=== PATIENT | female | born 1950 | race Caucasian/White ===

== ENCOUNTER 2019-06-03 20:39 | Observation (INO) ==
[2019-06-04] MEDS ORDERED: Pantoprazole 40 MG VIAL IVP ONE (03:01)
[2019-06-04] MEDS ORDERED: *HR* Dextrose 50 % in Water (Syg) 50 ML SYRINGE IVP PRN (03:02)
[2019-06-04] MEDS ORDERED: Dextrose Gel 15 GM/37.5 ML TUBE PO PRN ×2 (03:02)
[2019-06-04] MEDS ORDERED: D5% in Water 1,000 ML IVC PRN (03:02)
[2019-06-04] MEDS ORDERED: traMADol 50 MG TABLET PO PRN (03:05)
[2019-06-04] MEDS ORDERED: Acetaminophen 325 MG TABLET PO PRN (03:05)
[2019-06-04] MEDS ORDERED: Ondansetron 4 MG/2 ML VIAL IVP PRN (03:05)
[2019-06-04] MEDS ORDERED: Naloxone 0.4 MG/ML INJ IVP PRN (03:05)
[2019-06-04] MEDS ORDERED: Ipratropium/Albuterol Neb 3 ML IH PRN (03:11)
[2019-06-04 04:29] LABS: Basophils # 0.1 K/mcL (0.0-0.2); Basophils % 0.9 %; Eosinophils # 0.3 K/mcL (0.0-0.6); Eosinophils % 3.3 %; Hematocrit 37.2 % (35.3-44.9); Hemoglobin 11.7 g/dL (11.5-15.4); Immature Granulocytes % 0.3 % (0-4); Lymphocytes # 1.5 K/mcL (0.6-4.6); Lymphocytes % 19.7 %; Mean Corpuscular HGB Conc 31.5 g/dL (31.6-35.5); Mean Corpuscular Hemoglobin 25.4 pg (28.0-33.3); Mean Corpuscular Volume 80.9 fL (83.0-100.0); Mean Platelet Volume 10.9 fL (9.4-12.4); Monocytes # 0.7 K/mcL (0.0-1.3); Monocytes % 9.2 %; Platelet Count 199 K/mcL (140-400); Red Cell Distribution Width 18.4 % (11.5-14.5); Segmented Neutrophils % 66.6 %; White Blood Count 7.5 K/mcL (4.3-11.1)
[2019-06-04 04:48] LABS: Chol/HDL Ratio 3.4 (0-4.9)
[2019-06-04 04:51] LABS: Alanine Aminotransferase 11 Units/L (7-52); Albumin 3.6 g/dL (3.5-5.7); Albumin/Globulin Ratio 1.2 (1.1-2.2); Alkaline Phosphatase 94 Units/L (34-104); Aspartate Amino Transferase 14 Units/L (13-39); BUN/Creatinine Ratio 21 (6-26); Bilirubin,Total 0.5 mg/dL (0.3-1.0); Blood Urea Nitrogen 18 mg/dL (8-23); Calcium 8.7 mg/dL (8.6-10.3); Carbon Dioxide 28 mEq/L (23-29); Chloride 107 mEq/L (98-107); Globulin 3.1 g/dL (2.4-3.5); Glucose 94 mg/dL (70-105); Magnesium 2.3 mg/dL (1.6-2.6); Osmolality,Calculated 290 (280-300); Potassium 3.8 mEq/L (3.5-5.1); Sodium 139 mEq/L (136-145); Total Protein 6.7 g/dL (6.4-8.9); Troponin I < 0.03 ng/mL (< 0.04); eGFR For African Americans > 60 (> 60); eGFR For Non-African Americans > 60 (> 60)
[2019-06-04 05:06] LABS: Thyroid Stimulating Hormone 2.369 mcIU/mL (0.340-5.600)
[2019-06-04] MEDS ORDERED: Regadenoson 0.4 MG/5 ML SYRINGE IVP ONE (06:46)
[2019-06-04 10:03] LABS: Estimated Average Glucose 148 mg/dl
[2019-06-04] MEDS: Insulin LISPRO 300 UNITS/3 ML VIAL SQ SCH ×3 (13:30→17:17)
[2019-06-04 17:06] VITALS: BP 147/68
[2019-06-04] MEDS ORDERED: Insulin LISPRO 300 UNITS/3 ML VIAL SQ SCH (21:00)
== END 2019-06-04 18:34 | disposition home or self-care (01) ==
LOC: 3BNU → SUATTDRO 22:36
PROVIDERS: ADMIT Internal Medicine; ATTEND Student in an Organized Health Care Education/Training Program

== ENCOUNTER 2020-03-24 11:18 | Inpatient (IN) ==
[2020-03-24] MEDS ORDERED: Naloxone 0.4 MG/ML INJ IVP PRN (15:30)
[2020-03-24] MEDS ORDERED: Ondansetron ODT 4 MG TAB.RAPDIS SL PRN (15:36)
[2020-03-24] MEDS ORDERED: Dextrose Gel 15 GM/37.5 ML TUBE PO PRN ×2 (15:43)
[2020-03-24] MEDS ORDERED: *HR* Dextrose 50 % in Water (Vial) 50 ML VIAL IVP PRN (15:43)
[2020-03-24] MEDS ORDERED: D5% in Water 1,000 ML IVC PRN (15:43)
[2020-03-24 16:30] LABS: Albumin 3.4 g/dL (3.5-5.7); Albumin/Globulin Ratio 1.1 (1.1-2.2); Bilirubin,Total 1.9 mg/dL (0.3-1.0); Calcium 8.1 mg/dL (8.6-10.3); Magnesium 2.4 mg/dL (1.6-2.6); Phosphorous 3.5 mg/dL (2.7-4.5); Potassium 5.2 mEq/L (3.5-5.1); Total Protein 6.4 g/dL (6.4-8.9)
[2020-03-24] MEDS: Insulin LISPRO 300 UNITS/3 ML VIAL SQ SCH ×2 (16:47→20:17)
[2020-03-24 16:52] LABS: Hepatitis B Surface Antigen Nonreactive (Nonreactive)
[2020-03-24] MEDS ORDERED: 0.9 % Sodium Chloride 1,000 ML IVC ONE (16:59)
[2020-03-24 17:20] LABS: Hepatitis C Virus Antibody Nonreactive (Nonreactive)
[2020-03-24] MEDS ORDERED: 0.9 % Sodium Chloride 1,000 ML ONE (17:20)
[2020-03-24 17:21] LABS: Hepatitis B Core IgM Nonreactive (Nonreactive)
[2020-03-24 17:22] LABS: Hepatitis A Antibody IgM Nonreactive (Nonreactive)
[2020-03-24 17:35] LABS: Mean Corpuscular Volume 82.3 fL (83.0-100.0)
[2020-03-24 17:36] LABS: Basophils % 0.2 %; Eosinophils # 0.1 K/mcL (0.0-0.6); Eosinophils % 1.2 %; Hematocrit 41.4 % (35.3-44.9); Hemoglobin 12.6 g/dL (11.5-15.4); Immature Granulocytes % 0.3 % (0-4); Immature Platelets 11.7 % (1.1-6.1); Lymphocytes % 9.8 %; Mean Corpuscular HGB Conc 30.4 g/dL (31.6-35.5); Monocytes # 0.8 K/mcL (0.0-1.3); Monocytes % 9.4 %; Neutrophils # 6.8 K/mcL (1.6-8.9); Platelet Count 100 K/mcL (140-400); Red Blood Count 5.03 M/mcL (3.82-4.97); Red Cell Distribution Width 16.4 % (11.5-14.5); Segmented Neutrophils % 79.1 %; White Blood Count 8.6 K/mcL (4.3-11.1)
[2020-03-24] MEDS: *HR* Heparin 5,000 UNIT/ML VIAL SQ SCH (17:43)
[2020-03-24 17:45] LABS: Lymphocytes # 0.8 K/mcL (0.6-4.6)
[2020-03-24] MEDS: Gabapentin 300 MG CAPSULE PO SCH (20:13)
[2020-03-24] MEDS: 0.9 % Sodium Chloride 1,000 ML IVC SCH (20:13)
[2020-03-24] MEDS: Budesonide/Formoterol 160/4.5 1 PUFF INH IH SCH (20:27)
[2020-03-25 02:47] LABS: Hematocrit 37.6 % (35.3-44.9); Mean Corpuscular Volume 81.6 fL (83.0-100.0); Red Blood Count 4.61 M/mcL (3.82-4.97); Red Cell Distribution Width 16.6 % (11.5-14.5)
[2020-03-25 02:49] LABS: Hemoglobin 11.4 g/dL (11.5-15.4); Immature Platelets 9.6 % (1.1-6.1); Mean Corpuscular HGB Conc 30.3 g/dL (31.6-35.5); Mean Corpuscular Hemoglobin 24.7 pg (28.0-33.3); Mean Platelet Volume 11.8 fL (9.4-12.4); White Blood Count 6.3 K/mcL (4.3-11.1)
[2020-03-25 03:05] LABS: Albumin 3.1 g/dL (3.5-5.7); Albumin/Globulin Ratio 1.1 (1.1-2.2); Bilirubin,Total 2.3 mg/dL (0.3-1.0); Calcium 7.7 mg/dL (8.6-10.3); Globulin 2.7 g/dL (2.4-3.5); Potassium 4.5 mEq/L (3.5-5.1); Total Protein 5.8 g/dL (6.4-8.9)
[2020-03-25] MEDS: *HR* Heparin 5,000 UNIT/ML VIAL SQ SCH ×2 (05:49→16:36)
[2020-03-25] MEDS: Aspirin 81 MG TAB.CHEW PO SCH (07:39)
[2020-03-25] MEDS: Cholecalciferol (D-3) 1,000 UNIT (25MCG) TABLET PO SCH (07:39)
[2020-03-25] MEDS: Insulin LISPRO 300 UNITS/3 ML VIAL SQ SCH ×4 (08:25→19:54)
[2020-03-25] MEDS: Budesonide/Formoterol 160/4.5 1 PUFF INH IH SCH ×2 (10:45→21:41)
[2020-03-25] MEDS: Tiotropium 18 MCG inhalation IH SCH (10:46)
[2020-03-25] MEDS: 0.9 % Sodium Chloride 1,000 ML IVC SCH (11:59)
[2020-03-25] MEDS: Gabapentin 300 MG CAPSULE PO SCH (21:34)
[2020-03-26] MEDS: *HR* Heparin 5,000 UNIT/ML VIAL SQ SCH ×2 (05:24→16:35)
[2020-03-26 06:55] LABS: Hematocrit 37.8 % (35.3-44.9); Hemoglobin 11.4 g/dL (11.5-15.4); Immature Platelets 7.6 % (1.1-6.1); Mean Corpuscular HGB Conc 30.2 g/dL (31.6-35.5); Mean Corpuscular Hemoglobin 25.4 pg (28.0-33.3); Mean Corpuscular Volume 84.4 fL (83.0-100.0); Mean Platelet Volume 12.3 fL (9.4-12.4); Red Blood Count 4.48 M/mcL (3.82-4.97); Red Cell Distribution Width 16.6 % (11.5-14.5); White Blood Count 5.5 K/mcL (4.3-11.1)
[2020-03-26 07:18] LABS: Alanine Aminotransferase 136 Units/L (7-52); Albumin 3.1 g/dL (3.5-5.7); Albumin/Globulin Ratio 1.1 (1.1-2.2); Alkaline Phosphatase 390 Units/L (34-104); Aspartate Amino Transferase 68 Units/L (13-39); BUN/Creatinine Ratio 20 (6-26); Bilirubin,Total 1.9 mg/dL (0.3-1.0); Blood Urea Nitrogen 19 mg/dL (8-23); Calcium 7.8 mg/dL (8.6-10.3); Carbon Dioxide 24 mEq/L (23-29); Chloride 108 mEq/L (98-107); Globulin 2.9 g/dL (2.4-3.5); Glucose 124 mg/dL (70-105); Osmolality,Calculated 290 (280-300); Potassium 4.7 mEq/L (3.5-5.1); Sodium 138 mEq/L (136-145); eGFR For African Americans > 60 (> 60); eGFR For Non-African Americans 57 (> 60)
[2020-03-26] MEDS ORDERED: Furosemide 20 MG/2 ML VIAL IVP ONE (08:00)
[2020-03-26] MEDS: Insulin LISPRO 300 UNITS/3 ML VIAL SQ SCH ×4 (08:06→20:11)
[2020-03-26] MEDS: hydroCHLOROthiazide 25 MG TABLET PO SCH (08:13)
[2020-03-26] MEDS: Aspirin 81 MG TAB.CHEW PO SCH (08:13)
[2020-03-26] MEDS: Cholecalciferol (D-3) 1,000 UNIT (25MCG) TABLET PO SCH (08:13)
[2020-03-26] MEDS: Furosemide 40 MG TABLET PO SCH (08:14)
[2020-03-26] MEDS: amLODIPine 5 MG TABLET PO SCH (08:14)
[2020-03-26] MEDS: Budesonide/Formoterol 160/4.5 1 PUFF INH IH SCH ×2 (10:33→19:57)
[2020-03-26] MEDS: Tiotropium 18 MCG inhalation IH SCH (10:33)
[2020-03-26] MEDS ORDERED: Aminoglycoside Consult 1 EACH MC ONE (12:14)
[2020-03-26] MEDS ORDERED: cefTRIAXone 1,000 MG in Water for inj. (sterile) 10 ML IVP SCH (14:00)
[2020-03-26] MEDS ORDERED: Azithromycin 500 MG in 0.9 % Sodium Chloride 250 ML IVPB SCH (14:00)
[2020-03-26] MEDS: Ipratropium/Albuterol Neb 3 ML IH SCH ×2 (19:57→23:09)
[2020-03-26] MEDS: Gabapentin 300 MG CAPSULE PO SCH (20:04)
[2020-03-27 02:04] LABS: Hemoglobin 12.1 g/dL (11.5-15.4)
[2020-03-27 02:06] LABS: Hematocrit 40.1 % (35.3-44.9); Immature Platelets 11.5 % (1.1-6.1); Mean Corpuscular HGB Conc 30.2 g/dL (31.6-35.5); Mean Corpuscular Hemoglobin 24.7 pg (28.0-33.3); Mean Corpuscular Volume 81.8 fL (83.0-100.0); Mean Platelet Volume 13.1 fL (9.4-12.4); Red Blood Count 4.9 M/mcL (3.82-4.97); Red Cell Distribution Width 16.6 % (11.5-14.5); White Blood Count 5.8 K/mcL (4.3-11.1)
[2020-03-27 02:23] LABS: Alanine Aminotransferase 133 Units/L (7-52); Albumin 3.3 g/dL (3.5-5.7); Albumin/Globulin Ratio 1.1 (1.1-2.2); Alkaline Phosphatase 434 Units/L (34-104); Aspartate Amino Transferase 74 Units/L (13-39); BUN/Creatinine Ratio 21 (6-26); Bilirubin,Total 1.5 mg/dL (0.3-1.0); Blood Urea Nitrogen 18 mg/dL (8-23); Calcium 8.3 mg/dL (8.6-10.3); Carbon Dioxide 25 mEq/L (23-29); Chloride 103 mEq/L (98-107); Globulin 3.1 g/dL (2.4-3.5); Glucose 94 mg/dL (70-105); Osmolality,Calculated 280 (280-300); Potassium 4.4 mEq/L (3.5-5.1); Sodium 134 mEq/L (136-145); Total Protein 6.4 g/dL (6.4-8.9); eGFR For African Americans > 60 (> 60); eGFR For Non-African Americans > 60 (> 60)
[2020-03-27] MEDS: Ipratropium/Albuterol Neb 3 ML IH SCH ×6 (04:26→23:59)
[2020-03-27] MEDS: *HR* Heparin 5,000 UNIT/ML VIAL SQ SCH ×2 (04:55→17:10)
[2020-03-27] MEDS: Budesonide/Formoterol 160/4.5 1 PUFF INH IH SCH ×2 (07:42→20:52)
[2020-03-27] MEDS: Tiotropium 18 MCG inhalation IH SCH (07:43)
[2020-03-27] MEDS: Insulin LISPRO 300 UNITS/3 ML VIAL SQ SCH ×4 (08:54→20:41)
[2020-03-27] MEDS: Aspirin 81 MG TAB.CHEW PO SCH (08:59)
[2020-03-27] MEDS: hydroCHLOROthiazide 25 MG TABLET PO SCH (08:59)
[2020-03-27] MEDS: amLODIPine 5 MG TABLET PO SCH (08:59)
[2020-03-27] MEDS: Furosemide 40 MG TABLET PO SCH (08:59)
[2020-03-27] MEDS: Cholecalciferol (D-3) 1,000 UNIT (25MCG) TABLET PO SCH (08:59)
[2020-03-27 09:32] LABS: INR 0.9; Prothrombin Time 10.6 Seconds (9.4-12.1)
[2020-03-27 09:39] LABS: Gamma Glutamyl Transpeptidase 90 Units/L (7-64); Lactate Dehydrogenase 176 Units/L (140-271)
[2020-03-27] MEDS ORDERED: methylPREDNISolone 125 MG/2 ML VIAL IVP ONE (10:52)
[2020-03-27] MEDS: Cefdinir 300 MG CAPSULE PO SCH ×2 (12:05→20:41)
[2020-03-27] MEDS: Doxycycline 100 MG CAPSULE PO SCH ×2 (12:05→20:41)
[2020-03-27] MEDS: Gabapentin 300 MG CAPSULE PO SCH (20:41)
[2020-03-28 02:46] LABS: Hematocrit 37.5 % (35.3-44.9); Hemoglobin 11.6 g/dL (11.5-15.4); Mean Corpuscular HGB Conc 30.9 g/dL (31.6-35.5); Mean Corpuscular Hemoglobin 25.1 pg (28.0-33.3); Mean Corpuscular Volume 81.2 fL (83.0-100.0); Mean Platelet Volume 12.5 fL (9.4-12.4); Platelet Count 126 K/mcL (140-400); Red Blood Count 4.62 M/mcL (3.82-4.97); Red Cell Distribution Width 16.4 % (11.5-14.5); White Blood Count 5.5 K/mcL (4.3-11.1)
[2020-03-28 03:09] LABS: BUN/Creatinine Ratio 36 (6-26); Blood Urea Nitrogen 35 mg/dL (8-23); Calcium 8.6 mg/dL (8.6-10.3); Carbon Dioxide 25 mEq/L (23-29); Chloride 101 mEq/L (98-107); Glucose 286 mg/dL (70-105); Osmolality,Calculated 296 (280-300); Potassium 4.2 mEq/L (3.5-5.1); Sodium 134 mEq/L (136-145); eGFR For African Americans > 60 (> 60); eGFR For Non-African Americans 57 (> 60)
[2020-03-28] MEDS: Ipratropium/Albuterol Neb 3 ML IH SCH ×5 (04:40→19:35)
[2020-03-28] MEDS: *HR* Heparin 5,000 UNIT/ML VIAL SQ SCH ×2 (05:21→18:15)
[2020-03-28] MEDS: Budesonide/Formoterol 160/4.5 1 PUFF INH IH SCH ×2 (07:41→19:35)
[2020-03-28] MEDS: Cefdinir 300 MG CAPSULE PO SCH ×2 (08:42→20:46)
[2020-03-28] MEDS: predniSONE 20 MG TABLET PO SCH (08:43)
[2020-03-28] MEDS: hydroCHLOROthiazide 25 MG TABLET PO SCH (08:43)
[2020-03-28] MEDS: Furosemide 40 MG TABLET PO SCH (08:43)
[2020-03-28] MEDS: Doxycycline 100 MG CAPSULE PO SCH ×2 (08:43→20:46)
[2020-03-28] MEDS: Cholecalciferol (D-3) 1,000 UNIT (25MCG) TABLET PO SCH (08:43)
[2020-03-28] MEDS: Aspirin 81 MG TAB.CHEW PO SCH (08:43)
[2020-03-28] MEDS: amLODIPine 5 MG TABLET PO SCH (08:43)
[2020-03-28] MEDS: Insulin LISPRO 300 UNITS/3 ML VIAL SQ SCH ×4 (08:44→20:47)
[2020-03-28] MEDS ORDERED: Famotidine 20 MG/2 ML VIAL IVP ONE (14:46)
[2020-03-28] MEDS ORDERED: Dexamethasone 4 MG/ML VIAL ONE (16:02)
[2020-03-28] MEDS ORDERED: Ondansetron 4 MG/2 ML VIAL ONE (16:02)
[2020-03-28] MEDS ORDERED: Lidocaine -MPF 4% 5 ML AMPUL ONE (16:02)
[2020-03-28] MEDS ORDERED: Lidocaine -MPF 2% 2 ML VIAL ONE (16:02)
[2020-03-28] MEDS ORDERED: *HR* FentaNYL (PF) 100 MCG/2 ML VIAL ONE (16:02)
[2020-03-28] MEDS ORDERED: *HR* Rocuronium Bromide 50 MG/5 ML VIAL ONE (16:02)
[2020-03-28] MEDS ORDERED: *HR* Succinylcholine 200 MG/10 ML VIAL IVP ONE (16:02)
[2020-03-28] MEDS ORDERED: *HR* Propofol 200 MG/20 ML VIAL IVP ONE ×2 (16:02→16:46)
[2020-03-28] MEDS: *HR* EPINEPHrine 1 MG/10 ML SYRINGE INTRATRACH PRN ×2 (16:50→16:54)
[2020-03-28] MEDS ORDERED: Albuterol 2.5 MG/3 ML NEBULIZER ONE (17:02)
[2020-03-28] MEDS ORDERED: Albuterol 2.5 MG/3 ML NEBULIZER IH ONE (17:03)
[2020-03-28 18:54] LABS: Appearance of Body Fluid Hazy (Clear)
[2020-03-28 18:55] LABS: Volume of Body Fluid 14 mL
[2020-03-28] MEDS: Gabapentin 300 MG CAPSULE PO SCH (20:46)
[2020-03-29] MEDS: Ipratropium/Albuterol Neb 3 ML IH SCH ×4 (00:06→11:13)
[2020-03-29 02:04] LABS: Basophils % 0.1 %; Hematocrit 36.5 % (35.3-44.9); Hemoglobin 11.3 g/dL (11.5-15.4); Immature Granulocytes % 0.8 % (0-4); Lymphocytes # 0.4 K/mcL (0.6-4.6); Lymphocytes % 3.5 %; Mean Corpuscular Hemoglobin 25.4 pg (28.0-33.3); Mean Platelet Volume 12.4 fL (9.4-12.4); Monocytes # 0.5 K/mcL (0.0-1.3); Monocytes % 4.2 %; Platelet Count 150 K/mcL (140-400); Red Blood Count 4.45 M/mcL (3.82-4.97); Segmented Neutrophils % 91.4 %
[2020-03-29 02:05] LABS: Neutrophils # 9.9 K/mcL (1.6-8.9); White Blood Count 10.8 K/mcL (4.3-11.1)
[2020-03-29 02:20] LABS: BUN/Creatinine Ratio 34 (6-26); Blood Urea Nitrogen 30 mg/dL (8-23); Calcium 8.7 mg/dL (8.6-10.3); Carbon Dioxide 26 mEq/L (23-29); Chloride 98 mEq/L (98-107); Glucose 270 mg/dL (70-105); Osmolality,Calculated 294 (280-300); Potassium 4.6 mEq/L (3.5-5.1); Sodium 134 mEq/L (136-145); eGFR For African Americans > 60 (> 60); eGFR For Non-African Americans > 60 (> 60)
[2020-03-29 02:21] LABS: Albumin 3.2 g/dL (3.5-5.7); Bilirubin,Direct 0.2 mg/dL (0.0-0.2); Bilirubin,Indirect 0.4 mg/dL (0.0-1.0); Bilirubin,Total 0.6 mg/dL (0.3-1.0); Globulin 3.2 g/dL (2.4-3.5); Total Protein 6.4 g/dL (6.4-8.9)
[2020-03-29] MEDS: *HR* Heparin 5,000 UNIT/ML VIAL SQ SCH (05:36)
[2020-03-29] MEDS: Budesonide/Formoterol 160/4.5 1 PUFF INH IH SCH (07:39)
[2020-03-29 08:22] VITALS: BP 119/71
[2020-03-29] MEDS: Furosemide 40 MG TABLET PO SCH (08:36)
[2020-03-29] MEDS: Cholecalciferol (D-3) 1,000 UNIT (25MCG) TABLET PO SCH (08:37)
[2020-03-29] MEDS: Doxycycline 100 MG CAPSULE PO SCH (08:37)
[2020-03-29] MEDS: amLODIPine 5 MG TABLET PO SCH (08:37)
[2020-03-29] MEDS: predniSONE 20 MG TABLET PO SCH (08:37)
[2020-03-29] MEDS: hydroCHLOROthiazide 25 MG TABLET PO SCH (08:37)
[2020-03-29] MEDS: Cefdinir 300 MG CAPSULE PO SCH (08:37)
[2020-03-29] MEDS: Aspirin 81 MG TAB.CHEW PO SCH (08:37)
[2020-03-29] MEDS: Insulin LISPRO 300 UNITS/3 ML VIAL SQ SCH (08:37)
[2020-03-29 08:58] LABS: AFP Tumor Marker Non-Pregnant 3 ng/mL (0-9)
[2020-03-29 08:59] LABS: F-Actin (sm muscle) Ab IgG 30 Units (0-19); Serine Protease-3 Antibody 6 AU/mL (0-19)
[2020-03-29 09:06] LABS: ANA IgG by ELISA DETECTED (None Detected)
[2020-03-29 19:45] LABS: ANA HEp-2 IgG IFA DETECTED (<1:80); Anti Nuclear Ab Pattern NUCLEOLAR
[2020-03-30 08:17] LABS: Smooth Muscle Ab Titer IgG <1:20 (<1:20)
== END 2020-03-29 12:15 | disposition home or self-care (01) | DRG 682 ==
LOC: 2ANU → SUATTDRO 13:51
PROVIDERS: ADMIT Family Medicine; ATTEND Internal Medicine

== ENCOUNTER 2020-09-21 13:51 | Inpatient (IN) ==
[2020-09-21] MEDS ORDERED: Perflutren Lipid Microsphere 1.3 ML in 0.9 % Sodium Chloride 8.7 ML IVP PRN (16:50)
[2020-09-21] MEDS ORDERED: Aspirin Enteric Coated 325 MG Tablet PO ONE (16:52)
[2020-09-21] MEDS ORDERED: Ondansetron ODT 4 MG TAB.RAPDIS SL PRN (16:54)
[2020-09-21] MEDS ORDERED: Naloxone 0.4 MG/ML INJ IVP PRN (16:54)
[2020-09-21 17:22] LABS: Basophils % 0.4 %; Eosinophils # 0.1 K/mcL (0.0-0.6); Eosinophils % 0.6 %; Hematocrit 36.2 % (35.3-44.9); Hemoglobin 11.2 g/dL (11.5-15.4); Immature Granulocytes % 0.6 % (0-4); Lymphocytes # 0.4 K/mcL (0.6-4.6); Lymphocytes % 4.5 %; Mean Corpuscular HGB Conc 30.9 g/dL (31.6-35.5); Mean Corpuscular Hemoglobin 27.7 pg (28.0-33.3); Mean Corpuscular Volume 89.4 fL (83.0-100.0); Mean Platelet Volume 10.7 fL (9.4-12.4); Monocytes % 10.6 %; Neutrophils # 7.6 K/mcL (1.6-8.9); Platelet Count 196 K/mcL (140-400); Red Blood Count 4.05 M/mcL (3.82-4.97); Red Cell Distribution Width 19.5 % (11.5-14.5); Segmented Neutrophils % 83.3 %; White Blood Count 9.1 K/mcL (4.3-11.1)
[2020-09-21 17:42] LABS: BUN/Creatinine Ratio 27 (6-26); Blood Urea Nitrogen 20 mg/dL (8-23); Calcium 8.8 mg/dL (8.6-10.3); Carbon Dioxide 24 mEq/L (23-29); Chloride 101 mEq/L (98-107); Glucose 93 mg/dL (70-105); Osmolality,Calculated 280 (280-300); Potassium 4.5 mEq/L (3.5-5.1); Sodium 134 mEq/L (136-145); eGFR For African Americans > 60 (> 60); eGFR For Non-African Americans > 60 (> 60)
[2020-09-21] MEDS ORDERED: Isovue-370 500 ML BOTTLE IVP ONE (18:41)
[2020-09-21] MEDS ORDERED: *HR* Dextrose 50 % in Water (Vial) 50 ML VIAL IVP PRN (18:45)
[2020-09-21] MEDS ORDERED: D5% in Water 1,000 ML IVC PRN (18:45)
[2020-09-21] MEDS ORDERED: Dextrose Gel 15 GM/37.5 ML TUBE PO PRN ×2 (18:45)
[2020-09-21 21:06] LABS: Bacteria,Urine Few per hpf (None-Few); Bilirubin,Urine Negative (Negative); Blood,Urine Negative (Negative); Clarity,Urine Clear (Clear); Color,Urine Light-Orange (Yellow); Glucose,Urine (UA) Normal (Normal); Ketones,Urine Trace mg/dL (Negative); Leukocyte Esterase,Urine Negative (Negative); Mucus,Urine Few per lpf (None-Few); Nitrite,Urine Negative (Negative); Protein,Urine 30 mg/dL (Neg-Trace); RBC,Urine 0-3 per hpf (0-3); Specific Gravity,Urine > 1.030 (1.010-1.025); Squamous Epithelial Cell,Urine Moderate per hpf (None-Few); WBC,Urine 0-3 per hpf (0-3)
[2020-09-22] MEDS: Insulin LISPRO 300 UNITS/3 ML VIAL SUBQ SCH ×4 (00:47→19:08)
[2020-09-22] MEDS: Ipratropium/Albuterol Neb 3 ML IH SCH ×7 (03:27→23:39)
[2020-09-22] MEDS: Budesonide/Formoterol 160/4.5 1 PUFF INH IH SCH ×3 (03:27→20:00)
[2020-09-22] MEDS: *HR* Heparin 5,000 UNIT/ML VIAL SQ SCH ×2 (06:18→16:27)
[2020-09-22] MEDS ORDERED: Aspirin Enteric Coated 81 MG Tablet PO SCH (09:00)
[2020-09-22 09:04] LABS: Hematocrit 37.1 % (35.3-44.9); Hemoglobin 11.5 g/dL (11.5-15.4); Mean Corpuscular Hemoglobin 27.8 pg (28.0-33.3); Mean Corpuscular Volume 89.8 fL (83.0-100.0); Mean Platelet Volume 11.1 fL (9.4-12.4); Platelet Count 175 K/mcL (140-400); Red Blood Count 4.13 M/mcL (3.82-4.97); Red Cell Distribution Width 19.4 % (11.5-14.5); White Blood Count 6.1 K/mcL (4.3-11.1)
[2020-09-22 09:06] LABS: INR 1.2; Prothrombin Time 14.2 Seconds (9.4-12.1)
[2020-09-22 09:19] LABS: Alanine Aminotransferase 6 Units/L (7-52); Albumin 3.3 g/dL (3.5-5.7); Alkaline Phosphatase 76 Units/L (34-104); Aspartate Amino Transferase 11 Units/L (13-39); BUN/Creatinine Ratio 27 (6-26); Bilirubin,Total 0.6 mg/dL (0.3-1.0); Blood Urea Nitrogen 17 mg/dL (8-23); Calcium 8.7 mg/dL (8.6-10.3); Carbon Dioxide 23 mEq/L (23-29); Chloride 103 mEq/L (98-107); Chol/HDL Ratio 4.3 (0-4.9); Cholesterol 120 mg/dL (< 200); Globulin 3.3 g/dL (2.4-3.5); Glucose 82 mg/dL (70-105); HDL Cholesterol 28 mg/dL (40-59); LDL Cholesterol,Calculated 72 mg/dL (< 100); Osmolality,Calculated 281 (280-300); Potassium 3.8 mEq/L (3.5-5.1); Sodium 135 mEq/L (136-145); Total Protein 6.6 g/dL (6.4-8.9); Triglycerides 100 mg/dL (< 150); Troponin I 0.03 ng/mL (< 0.04); eGFR For African Americans > 60 (> 60); eGFR For Non-African Americans > 60 (> 60)
[2020-09-22] MEDS: Aspirin 81 MG TAB.CHEW PO SCH (11:25)
[2020-09-22] MEDS: Nicotine 7 MG PATCH.TD24 TD SCH (16:27)
[2020-09-22 22:34] LABS: Estimated Average Glucose 134 mg/dl; Hemoglobin A1C 6.3 %
[2020-09-23] MEDS: Insulin LISPRO 300 UNITS/3 ML VIAL SUBQ SCH ×4 (00:03→18:26)
[2020-09-23 03:59] LABS: Hematocrit 35.3 % (35.3-44.9); Mean Corpuscular HGB Conc 31.2 g/dL (31.6-35.5); Mean Corpuscular Hemoglobin 28.2 pg (28.0-33.3); Mean Corpuscular Volume 90.5 fL (83.0-100.0); Mean Platelet Volume 10.7 fL (9.4-12.4); Platelet Count 185 K/mcL (140-400); White Blood Count 9.2 K/mcL (4.3-11.1)
[2020-09-23] MEDS: Ipratropium/Albuterol Neb 3 ML IH SCH ×6 (04:04→23:52)
[2020-09-23 04:21] LABS: BUN/Creatinine Ratio 28 (6-26); Blood Urea Nitrogen 18 mg/dL (8-23); Calcium 8.7 mg/dL (8.6-10.3); Carbon Dioxide 26 mEq/L (23-29); Chloride 104 mEq/L (98-107); Glucose 113 mg/dL (70-105); Osmolality,Calculated 287 (280-300); Potassium 4.3 mEq/L (3.5-5.1); Sodium 137 mEq/L (136-145); eGFR For African Americans > 60 (> 60); eGFR For Non-African Americans > 60 (> 60)
[2020-09-23] MEDS: *HR* Heparin 5,000 UNIT/ML VIAL SQ SCH ×2 (05:15→16:12)
[2020-09-23] MEDS: Budesonide/Formoterol 160/4.5 1 PUFF INH IH SCH ×2 (08:07→20:06)
[2020-09-23] MEDS: Nicotine 7 MG PATCH.TD24 TD SCH (08:36)
[2020-09-23] MEDS: Aspirin 81 MG TAB.CHEW PO SCH (08:36)
[2020-09-23] MEDS: Cholecalciferol (D-3) 1,000 UNIT (25MCG) TABLET PO SCH (08:36)
[2020-09-23] MEDS: predniSONE 20 MG TABLET PO SCH (09:42)
[2020-09-23] MEDS ORDERED: Azithromycin 500 MG in 0.9 % Sodium Chloride 250 ML IVPB SCH (16:00)
[2020-09-23] MEDS: Cefepime HCl 2,000 MG in Water for inj. (sterile) 20 ML IVP SCH ×2 (16:12→23:15)
[2020-09-23 17:36] LABS: Adenovirus Not Detected (Not Detect); Bordetella Pertussis Not Detected (Not Detect); Chlamydophila pneumoniae Not Detected (Not Detect); Coronavirus 229E Not Detected (Not Detect); Coronavirus HKU1 Not Detected (Not Detect); Coronavirus NL63 Not Detected (Not Detect); Coronavirus OC43 Not Detected (Not Detect); Human Metapneumovirus Not Detected (Not Detect); Human Rhinovirus/Enterovirus Not Detected (Not Detect); Influenza A Subtype 2009 H1 Not Detected (Not Detect); Influenza B Not Detected (Not Detect); Mycoplasma pneumoniae Not Detected (Not Detect); Parainfluenza Virus 1 Not Detected (Not Detect); Parainfluenza Virus 2 Not Detected (Not Detect); Parainfluenza Virus 3 Not Detected (Not Detect); Parainfluenza Virus 4 Not Detected (Not Detect); Respiratory Syncytial Virus Not Detected (Not Detect); SARS-CoV-2 Not Detected (Not Detect)
[2020-09-23] MEDS: Gabapentin 300 MG CAPSULE PO SCH (19:47)
[2020-09-24] MEDS: Insulin LISPRO 300 UNITS/3 ML VIAL SUBQ SCH ×4 (00:11→17:31)
[2020-09-24 02:02] LABS: Hemoglobin 10.7 g/dL (11.5-15.4); Mean Corpuscular HGB Conc 31.5 g/dL (31.6-35.5); Mean Corpuscular Hemoglobin 28.5 pg (28.0-33.3); Mean Corpuscular Volume 90.7 fL (83.0-100.0); Platelet Count 195 K/mcL (140-400); Red Blood Count 3.75 M/mcL (3.82-4.97); Red Cell Distribution Width 18.8 % (11.5-14.5); White Blood Count 7.7 K/mcL (4.3-11.1)
[2020-09-24 02:20] LABS: BUN/Creatinine Ratio 32 (6-26); Blood Urea Nitrogen 24 mg/dL (8-23); Calcium 8.9 mg/dL (8.6-10.3); Carbon Dioxide 23 mEq/L (23-29); Chloride 104 mEq/L (98-107); Glucose 186 mg/dL (70-105); Osmolality,Calculated 289 (280-300); Potassium 4.3 mEq/L (3.5-5.1); Sodium 135 mEq/L (136-145); eGFR For African Americans > 60 (> 60); eGFR For Non-African Americans > 60 (> 60)
[2020-09-24] MEDS: Ipratropium/Albuterol Neb 3 ML IH SCH ×6 (03:57→23:13)
[2020-09-24] MEDS: *HR* Heparin 5,000 UNIT/ML VIAL SQ SCH ×2 (05:35→16:48)
[2020-09-24] MEDS: Budesonide/Formoterol 160/4.5 1 PUFF INH IH SCH ×2 (08:14→20:11)
[2020-09-24] MEDS: Furosemide 40 MG TABLET PO SCH (08:32)
[2020-09-24] MEDS: Cefepime HCl 2,000 MG in Water for inj. (sterile) 20 ML IVP SCH ×3 (08:32→23:43)
[2020-09-24] MEDS: Nicotine 7 MG PATCH.TD24 TD SCH (08:32)
[2020-09-24] MEDS: predniSONE 20 MG TABLET PO SCH (08:33)
[2020-09-24] MEDS: hydroCHLOROthiazide 25 MG TABLET PO SCH (08:33)
[2020-09-24] MEDS: Aspirin 81 MG TAB.CHEW PO SCH (08:33)
[2020-09-24] MEDS: Cholecalciferol (D-3) 1,000 UNIT (25MCG) TABLET PO SCH (08:33)
[2020-09-24] MEDS: amLODIPine 5 MG TABLET PO SCH (08:33)
[2020-09-24] MEDS ORDERED: Isovue-370 500 ML BOTTLE IVP ONE (14:58)
[2020-09-24] MEDS: Gabapentin 300 MG CAPSULE PO SCH (20:25)
[2020-09-25] MEDS: Insulin LISPRO 300 UNITS/3 ML VIAL SUBQ SCH ×3 (00:25→11:58)
[2020-09-25] MEDS: Ipratropium/Albuterol Neb 3 ML IH SCH ×6 (03:34→23:43)
[2020-09-25] MEDS: *HR* Heparin 5,000 UNIT/ML VIAL SQ SCH (05:23)
[2020-09-25 06:32] LABS: Hematocrit 32.4 % (35.3-44.9); Hemoglobin 10.1 g/dL (11.5-15.4); Mean Corpuscular HGB Conc 31.2 g/dL (31.6-35.5); Mean Corpuscular Hemoglobin 28.1 pg (28.0-33.3); Mean Platelet Volume 10.9 fL (9.4-12.4); Platelet Count 186 K/mcL (140-400); Red Cell Distribution Width 18.9 % (11.5-14.5); White Blood Count 8.1 K/mcL (4.3-11.1)
[2020-09-25 06:48] LABS: BUN/Creatinine Ratio 33 (6-26); Blood Urea Nitrogen 25 mg/dL (8-23); Calcium 9.1 mg/dL (8.6-10.3); Carbon Dioxide 24 mEq/L (23-29); Chloride 105 mEq/L (98-107); Glucose 149 mg/dL (70-105); Osmolality,Calculated 291 (280-300); Potassium 3.9 mEq/L (3.5-5.1); Sodium 137 mEq/L (136-145); eGFR For African Americans > 60 (> 60); eGFR For Non-African Americans > 60 (> 60)
[2020-09-25] MEDS: Budesonide/Formoterol 160/4.5 1 PUFF INH IH SCH ×3 (07:44→22:21)
[2020-09-25] MEDS: Cefepime HCl 2,000 MG in Water for inj. (sterile) 20 ML IVP SCH (09:21)
[2020-09-25] MEDS: hydroCHLOROthiazide 25 MG TABLET PO SCH (09:25)
[2020-09-25] MEDS: Nicotine 7 MG PATCH.TD24 TD SCH (09:25)
[2020-09-25] MEDS: Cholecalciferol (D-3) 1,000 UNIT (25MCG) TABLET PO SCH (09:26)
[2020-09-25] MEDS: predniSONE 20 MG TABLET PO SCH (09:26)
[2020-09-25] MEDS: amLODIPine 5 MG TABLET PO SCH (09:26)
[2020-09-25] MEDS: Furosemide 40 MG TABLET PO SCH (09:26)
[2020-09-25] MEDS: Aspirin 81 MG TAB.CHEW PO SCH (09:26)
[2020-09-25] MEDS ORDERED: *HR* FentaNYL (PF) 100 MCG/2 ML VIAL ONE ×2 (13:44→20:00)
[2020-09-25] MEDS ORDERED: *HR* Propofol 200 MG/20 ML VIAL IVP ONE (13:45)
[2020-09-25] MEDS ORDERED: Ondansetron 4 MG/2 ML VIAL ONE ×2 (13:48→20:08)
[2020-09-25] MEDS ORDERED: *HR* Succinylcholine 200 MG/10 ML VIAL IVP ONE (13:48)
[2020-09-25] MEDS ORDERED: Lidocaine -MPF 2% 2 ML VIAL ONE (13:48)
[2020-09-25] MEDS ORDERED: Heparin 1,000 UNITS/500 mL 500 ML ONE ×2 (13:49→15:33)
[2020-09-25] MEDS ORDERED: EPHEDrine 50 MG/ML VIAL ONE (13:50)
[2020-09-25] MEDS ORDERED: *HR* Heparin 5,000 UNIT/ML VIAL ONE (13:52)
[2020-09-25] MEDS ORDERED: *HR* Phenylephrine 10 MG/ML VIAL ONE (13:55)
[2020-09-25] MEDS ORDERED: *HR* Remifentanil 1 MG VIAL IVP ONE (13:59)
[2020-09-25] MEDS ORDERED: Lidocaine -MPF 4% 5 ML AMPUL ONE (14:03)
[2020-09-25] MEDS ORDERED: Ondansetron 4 MG/2 ML VIAL IVP PRN ×3 (14:51→21:30)
[2020-09-25] MEDS ORDERED: *HR* OxyCODONE Immed Rel 5 MG TABLET PO PRN ×2 (14:51→21:30)
[2020-09-25] MEDS ORDERED: *HR* Labetalol 20 MG/4 ML SYRINGE IVP PRN ×3 (14:51→21:30)
[2020-09-25] MEDS ORDERED: *HR* HYDROmorphone 2 MG TABLET PO PRN ×2 (14:51→21:30)
[2020-09-25] MEDS ORDERED: Ringers Solution, Lactated 1,000 ML IVC SCH ×2 (15:00→21:30)
[2020-09-25] MEDS ORDERED: Protamine Sulfate 50 MG/5 ML VIAL IVP ONE (15:33)
[2020-09-25] MEDS: Clindamycin 900 MG/50 ML 900 MG/50 ML IV.SOLN IVPB ONE ×2 (15:35→15:50)
[2020-09-25] MEDS ORDERED: Clindamycin 900 MG/50 ML 900 MG/50 ML IV.SOLN IVPB ONE (15:49)
[2020-09-25] MEDS ORDERED: *HR* Dextrose 50 % in Water (Vial) 50 ML VIAL IVP PRN (21:30)
[2020-09-25] MEDS ORDERED: D5% in Water 1,000 ML IVC PRN (21:30)
[2020-09-25] MEDS ORDERED: Dextrose Gel 15 GM/37.5 ML TUBE PO PRN ×2 (21:30)
[2020-09-25] MEDS ORDERED: Naloxone 0.4 MG/ML INJ IVP PRN ×2 (21:30)
[2020-09-25] MEDS ORDERED: Perflutren Lipid Microsphere 1.3 ML in 0.9 % Sodium Chloride 8.7 ML IVP PRN (21:30)
[2020-09-25] MEDS ORDERED: Acetaminophen 325 MG TABLET PO PRN (21:30)
[2020-09-25] MEDS ORDERED: *HR* HYDROcodone/Acet 5/325 mg TABLET PO PRN (21:30)
[2020-09-25] MEDS ORDERED: Ondansetron ODT 4 MG TAB.RAPDIS SL PRN (21:30)
[2020-09-25 23:32] LABS: Hematocrit 29.2 % (35.3-44.9); Hemoglobin 9.3 g/dL (11.5-15.4); Mean Corpuscular HGB Conc 31.8 g/dL (31.6-35.5); Mean Corpuscular Hemoglobin 27.8 pg (28.0-33.3); Mean Corpuscular Volume 87.4 fL (83.0-100.0); Mean Platelet Volume 10.6 fL (9.4-12.4); Platelet Count 185 K/mcL (140-400); Red Blood Count 3.34 M/mcL (3.82-4.97); Red Cell Distribution Width 19.2 % (11.5-14.5)
[2020-09-26 00:09] LABS: Lymphocytes # 0.4 K/mcL (0.6-4.6); Monocytes # 0.4 K/mcL (0.0-1.3); Neutrophils # 8.3 K/mcL (1.6-8.9); Platelet Estimate Normal (Normal)
[2020-09-26] MEDS: Insulin LISPRO 300 UNITS/3 ML VIAL SUBQ SCH ×4 (00:14→18:25)
[2020-09-26] MEDS: Cefepime HCl 2,000 MG in Water for inj. (sterile) 20 ML IVP SCH ×3 (00:15→19:56)
[2020-09-26] MEDS: Ipratropium/Albuterol Neb 3 ML IH SCH ×6 (03:48→23:09)
[2020-09-26] MEDS: *HR* Heparin 5,000 UNIT/ML VIAL SQ SCH ×2 (06:21→17:15)
[2020-09-26] MEDS: Budesonide/Formoterol 160/4.5 1 PUFF INH IH SCH ×2 (08:02→20:20)
[2020-09-26] MEDS: Nicotine 7 MG PATCH.TD24 TD SCH (09:09)
[2020-09-26] MEDS: Aspirin 81 MG TAB.CHEW PO SCH (09:09)
[2020-09-26] MEDS: Cholecalciferol (D-3) 1,000 UNIT (25MCG) TABLET PO SCH (09:10)
[2020-09-26] MEDS: hydroCHLOROthiazide 25 MG TABLET PO SCH (09:10)
[2020-09-26] MEDS: predniSONE 20 MG TABLET PO SCH (09:10)
[2020-09-26] MEDS: amLODIPine 5 MG TABLET PO SCH (09:11)
[2020-09-26] MEDS: Furosemide 40 MG TABLET PO SCH (09:11)
[2020-09-26 13:24] LABS: Basophils % 0.1 %; Hematocrit 33.7 % (35.3-44.9); Hemoglobin 10.4 g/dL (11.5-15.4); Immature Granulocytes % 1.1 % (0-4); Lymphocytes # 0.2 K/mcL (0.6-4.6); Lymphocytes % 1.8 %; Mean Corpuscular HGB Conc 30.9 g/dL (31.6-35.5); Mean Corpuscular Hemoglobin 27.6 pg (28.0-33.3); Mean Corpuscular Volume 89.4 fL (83.0-100.0); Mean Platelet Volume 10.9 fL (9.4-12.4); Monocytes # 0.5 K/mcL (0.0-1.3); Monocytes % 4.2 %; Neutrophils # 11.1 K/mcL (1.6-8.9); Platelet Count 216 K/mcL (140-400); Red Blood Count 3.77 M/mcL (3.82-4.97); Red Cell Distribution Width 19.4 % (11.5-14.5); Segmented Neutrophils % 92.8 %
[2020-09-26 13:38] LABS: BUN/Creatinine Ratio 25 (6-26); Blood Urea Nitrogen 21 mg/dL (8-23); Calcium 9.2 mg/dL (8.6-10.3); Carbon Dioxide 30 mEq/L (23-29); Chloride 99 mEq/L (98-107); Glucose 145 mg/dL (70-105); Osmolality,Calculated 286 (280-300); Potassium 4.4 mEq/L (3.5-5.1); Sodium 135 mEq/L (136-145); eGFR For African Americans > 60 (> 60); eGFR For Non-African Americans > 60 (> 60)
[2020-09-26] MEDS ORDERED: Gabapentin 300 MG CAPSULE PO SCH (21:00)
[2020-09-27] MEDS: Insulin LISPRO 300 UNITS/3 ML VIAL SUBQ SCH ×3 (00:25→11:46)
[2020-09-27 03:24] LABS: Basophils % 0.4 %; Eosinophils % 0.1 %; Hematocrit 31.9 % (35.3-44.9); Hemoglobin 10.1 g/dL (11.5-15.4); Immature Granulocytes % 1.8 % (0-4); Lymphocytes # 0.6 K/mcL (0.6-4.6); Lymphocytes % 7.8 %; Mean Corpuscular HGB Conc 31.7 g/dL (31.6-35.5); Mean Corpuscular Hemoglobin 27.8 pg (28.0-33.3); Mean Corpuscular Volume 87.9 fL (83.0-100.0); Mean Platelet Volume 11.1 fL (9.4-12.4); Monocytes # 0.8 K/mcL (0.0-1.3); Monocytes % 10.2 %; Neutrophils # 6.2 K/mcL (1.6-8.9); Platelet Count 190 K/mcL (140-400); Red Blood Count 3.63 M/mcL (3.82-4.97); Red Cell Distribution Width 19.1 % (11.5-14.5); Segmented Neutrophils % 79.7 %; White Blood Count 7.7 K/mcL (4.3-11.1)
[2020-09-27 03:44] LABS: BUN/Creatinine Ratio 26 (6-26); Blood Urea Nitrogen 21 mg/dL (8-23); Carbon Dioxide 33 mEq/L (23-29); Chloride 101 mEq/L (98-107); Glucose 114 mg/dL (70-105); Osmolality,Calculated 292 (280-300); Potassium 4.1 mEq/L (3.5-5.1); Sodium 139 mEq/L (136-145); eGFR For African Americans > 60 (> 60); eGFR For Non-African Americans > 60 (> 60)
[2020-09-27] MEDS: Ipratropium/Albuterol Neb 3 ML IH SCH ×3 (04:40→11:33)
[2020-09-27] MEDS: *HR* Heparin 5,000 UNIT/ML VIAL SQ SCH (05:29)
[2020-09-27] MEDS: Budesonide/Formoterol 160/4.5 1 PUFF INH IH SCH (07:34)
[2020-09-27] MEDS: Furosemide 40 MG TABLET PO SCH (09:03)
[2020-09-27] MEDS: Aspirin 81 MG TAB.CHEW PO SCH (09:03)
[2020-09-27] MEDS: amLODIPine 5 MG TABLET PO SCH (09:03)
[2020-09-27] MEDS: Nicotine 7 MG PATCH.TD24 TD SCH (09:03)
[2020-09-27] MEDS: predniSONE 20 MG TABLET PO SCH (09:04)
[2020-09-27] MEDS: Cefepime HCl 2,000 MG in Water for inj. (sterile) 20 ML IVP SCH (09:04)
[2020-09-27] MEDS: Cholecalciferol (D-3) 1,000 UNIT (25MCG) TABLET PO SCH (09:04)
[2020-09-27] MEDS: hydroCHLOROthiazide 25 MG TABLET PO SCH (09:19)
[2020-09-27 11:47] VITALS: BP 121/80
[2020-09-27] MEDS ORDERED: Insulin LISPRO 300 UNITS/3 ML VIAL SUBQ SCH (21:00)
== END 2020-09-27 15:35 | disposition home health service (06) ==
LOC: EMEROOARM 13:51 → 3BNU 13:51 → SUATTDRO 18:55 → 3BNU 20:07 → SUATTDRO 09-24 05:56 → 2NNU 09-25 18:28
PROVIDERS: ADMIT Family Medicine; ATTEND Internal Medicine